=== PATIENT | female | born 1980 | race Caucasian/White ===

== ENCOUNTER 2019-08-01 18:57 | Emergency (ER) | payer SELFPAY ==
[2019-08-01] MEDS ORDERED: Ketorolac Tromethamine 60 MG/2 ML VIAL ONE (19:31)
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
== END 2019-08-01 21:01 | disposition home or self-care (01) ==
LOC: ERS 18:57
DX: S16.1XXA Strain of muscle, fascia and tendon at neck level, initial encounter (principal); G44.309 Post-traumatic headache, unspecified, not intractable; I10 Essential (primary) hypertension; F41.9 Anxiety disorder, unspecified; F32.9 Major depressive disorder, single episode, unspecified; Z87.891 Personal history of nicotine dependence; V89.2XXA Person injured in unspecified motor-vehicle accident, traffic, initial encounter
CPT/HCPCS: 70450; 72125; 96372; J1885

== ENCOUNTER 2020-01-19 15:01 | Day surgery (SDC) | payer OTHER ==
[~2020-01-19 15:01] MED LIST: Dexamethasone 20 MG/5 ML VIAL ONE; Fentanyl 100 MCG/2 ML VIAL ONE; Ferric Subsulfate (ASTRINGYN) 8 ML VIAL ONE; Glycopyrrolate 0.2 MG/ML 5 ML SYRINGE ONE; Lidocaine 1% PF 5 ML VIAL ONE; Ondansetron PF 4 MG/2 ML Vial ONE; PROPOFOL 200 MG/20 ML VIAL ONE; Rocuronium Bromide 10 MG/ML (10ML VIAL) ONE; Succinylcholine Chloride 20 MG/ML 10 ml SYRINGE FS ONE
[2020-01-19] MEDS ORDERED: Midazolam HCl 2 mg/2 ml Vial ONE (15:32)
[2020-01-19] MEDS ORDERED: Sodium Chloride 0.9% 100 ML ONE (15:40)
[2020-01-19] MEDS ORDERED: Tranexamic Acid 1,000 MG/10 ML VIAL ONE (15:40)
[2020-01-19 15:53] LABS: #Basophils 0.1 thou/uL (0.0-0.2); #Lymphocytes 2.3 thou/uL (1.20-3.40); #Monocytes 0.5 thou/uL (0.11-0.59); #Neutrophils 6.9 thou/uL (1.40-6.50); %Basophils 0.8 % (0.0-1.0); %Eosinophils 0.4 % (0.0-10.0); %Lymphocytes 23.2 % (21.0-51.0); %Monocytes 5.1 % (0.0-10.0); %Neutrophils 70.5 % (42.0-75.0); Hemoglobin 12.8 g/dL (12.0-16.0); Mean Corpuscular Hemoglobin 30.4 pg (27.0-31.0); Mean Corpuscular Volume 89.4 fL (78.0-98.0); Mean Platelet Volume 7.9 fL (7.4-10.4); Platelet Count 260 thou/uL (130-400); RBC Distribution Width 12.7 % (11.5-14.5); Red Blood Cell (RBC) Count 4.21 mill/uL (4.20-5.40); White Blood Cell (WBC) Count 9.8 thou/uL (4.8-10.8)
[2020-01-19] MEDS ORDERED: Promethazine HCl 25 MG/ML VIAL IM PRN (16:58)
[2020-01-19] MEDS ORDERED: Promethazine HCl 25 MG/ML VIAL SLOW IVP PRN (16:58)
[2020-01-19] MEDS ORDERED: Ondansetron HCl/PF 4 MG/2 ML Vial IVP PRN (16:58)
[2020-01-19] MEDS ORDERED: Meperidine HCl/PF 25 MG/ML VIAL ONE (17:01)
[2020-01-19] MEDS ORDERED: Labetalol HCl 100 MG/20 ML VIAL ONE (17:09)
[2020-01-19] MEDS ORDERED: Fentanyl 100 MCG/2 ML VIAL ONE (17:25)
[2020-01-19] MEDS ORDERED: HYDROcodone/Acetaminophen 5/325 mg Tablet ONE (18:05)
--- NOTE | 2020-01-20 10:27 | OP ---
DATE OF PROCEDURE: 01/19/2020 PREOPERATIVE DIAGNOSIS: Postoperative bleeding from LEEP site. POSTOPERATIVE DIAGNOSIS: Postoperative bleeding from LEEP site. PROCEDURE PERFORMED: Over-sew of LEEP bed. MEAT CUTTER APPRENTICE SURGEON: None. ANESTHESIA: General endotracheal. SPECIMENS: None. ESTIMATED BLOOD LOSS: 20 mL. COMPLICATIONS: None. DRAINS: None. PATHOLOGY: None. FINDINGS: On exam under anesthesia, there was active bleeding present from the cervix at approximately 12 o'clock and 4 o'clock. This bleeding was not brisk. It was oozing and there was excellent hemostasis at the conclusion of the procedure. OPERATIVE INDICATIONS: The patient had come into my office for office-based procedure secondary to KELLEN-3. The patient was extremely nervous and adamant that she wanted to proceed with her surgery secondary to fear of developing invasive cancer, was felt reasonable to proceed with a LEEP procedure in the office. However, following the procedure, there was continued bleeding from deep in the LEEP bed. The patient was uncomfortable and despite trying to obtain hemostasis with an office cautery at pressure and Monsel's, the bleeding continued and was not felt safe to allow the patient in observation with pressure and therefore, she was brought to the OR. DESCRIPTION OF PROCEDURE: The patient was taken to the operating room, where general anesthesia was obtained without difficulty. The patient was prepped and draped in a sterile fashion in dorsal lithotomy position. A weighted speculum was placed in the vagina. The anterior Kechi was also placed. The cervix was visualized and grasped with an Allis clamp and brought down into the vagina. The area of active bleeding was identified, and cautery was performed of this area, and 0 Vicryl was then used to perform the sutures on the cervix in a running locking fashion across the anterior lip and then across the posterior lip. This achieved hemostasis excellently, and Monsel's was placed over the cervical bed. At the conclusion of the procedure, again noting hemostasis. All instruments were removed out of the vagina. The vagina was irrigated and, the patient tolerated the procedure well. Sponge, lap, and needle counts were correct x2. The patient was taken to recovery room in stable condition. Job ID: [id number]
== END 2020-01-19 19:00 | disposition home or self-care (01) ==
LOC: SDC 15:01
PROVIDERS: ATTEND Student in an Organized Health Care Education/Training Program
PROC: 0UQC7ZZ Repair Cervix, Via Natural or Artificial Opening (ICD-10-PCS; principal; 2020-01-19)
DX: N99.820 Postprocedural hemorrhage of a genitourinary system organ or structure following a genitourinary system procedure (principal); I10 Essential (primary) hypertension; E66.9 Obesity, unspecified; F41.9 Anxiety disorder, unspecified; F32.9 Major depressive disorder, single episode, unspecified; F17.290 Nicotine dependence, other tobacco product, uncomplicated; Z79.899 Other long term (current) drug therapy; Z88.0 Allergy status to penicillin
CPT/HCPCS: 36415; 85025; 86850; 86900; 86901; J1100; J2001; J2175; J2250; J2405; J2704; J3010; J3490

== ENCOUNTER 2021-07-24 22:52 | Emergency (ER) | payer BC ==
[2021-07-24 23:17] LABS: #Basophils 0.1 thou/uL (0.0-0.2); #Lymphocytes 1.5 thou/uL (1.20-3.40); #Monocytes 0.4 thou/uL (0.11-0.59); #Neutrophils 13.7 thou/uL (1.40-6.50); %Basophils 0.6 % (0.0-1.0); %Lymphocytes 9.7 % (21.0-51.0); %Monocytes 2.3 % (0.0-10.0); %Neutrophils 87.4 % (42.0-75.0); Mean Corpuscular HGB CONC 33.9 g/dL (32.0-36.0); Mean Corpuscular Hemoglobin 30.5 pg (27.0-31.0); Mean Corpuscular Volume 89.7 fL (78.0-98.0); Mean Platelet Volume 7.8 fL (7.4-10.4); Platelet Count 306 thou/uL (130-400); RBC Distribution Width 13.2 % (11.5-14.5); Red Blood Cell (RBC) Count 4.91 mill/uL (4.20-5.40); White Blood Cell (WBC) Count 15.7 thou/uL (4.8-10.8)
[2021-07-24 23:36] LABS: ALT (SGPT) 16 U/L (8-55); AST (SGOT) 12 U/L (5-34); Albumin 4.2 g/dL (3.5-5.0); Alkaline Phosphatase 74 U/L (40-110); Anion Gap 16 mmol/L (10-20); BUN (Urea Nitrogen) 14 mg/dL (7.0-18.7); Bilirubin, Total 0.2 mg/dL (0.2-1.2); Calc. Creatinine Clearance 0 mL/min (70-130); Calcium 9.9 mg/dL (7.8-10.44); Carbon Dioxide 20 mmol/L (22-29); Chloride 106 mmol/L (98-107); Globulin 3.7 g/dL (2.4-3.5); Glucose 143 mg/dL (70-105); Potassium 4.6 mmol/L (3.5-5.1); Protein, Total 7.9 g/dL (6.0-8.3); Sodium 137 mmol/L (136-145)
[2021-07-24] MEDS ORDERED: Ondansetron PF 4 MG/2 ML Vial ONE (23:43)
[2021-07-24] MEDS ORDERED: Ketorolac Tromethamine 30 MG/ML VIAL ONE (23:43)
[2021-07-24] MEDS ORDERED: Aspirin Chewable 81 MG TAB ONE (23:43)
[2021-07-24] MEDS ORDERED: Metoclopramide HCl 10 MG/2 ML VIAL ONE (23:45)
[2021-07-25] MEDS ORDERED: Acetaminophen 500 MG TAB ONE (01:04)
[2021-07-25 04:44] LABS: Troponin I Less than 0.010 ng/mL (< 0.028)
== END 2021-07-25 05:15 | disposition home or self-care (01) ==
LOC: ERS 22:52
DX: I10 Essential (primary) hypertension (principal); R07.9 Chest pain, unspecified; R51.9 Headache, unspecified; Z87.891 Personal history of nicotine dependence
CPT/HCPCS: 36415; 70450; 71045; 80053; 84484; 85025; 93005; 96374; 96375; J1885; J2405; J2765

== ENCOUNTER 2022-10-31 10:27 | Outpatient (CLI) | payer BC, OTHER | END 2022-10-31 10:28 | disposition home or self-care (01) | LOC: BICRAD 10:27 | PROVIDERS: ATTEND Family Medicine | DX: M54.2 Cervicalgia (principal); M25.78 Osteophyte, vertebrae; M47.892 Other spondylosis, cervical region; V89.2XXA Person injured in unspecified motor-vehicle accident, traffic, initial encounter | CPT/HCPCS: 72052 ==